=== PATIENT | female | born 1945 | race Caucasian/White ===

== ENCOUNTER 2016-09-01 19:40 | Emergency (ER) | payer MEDICARE, OTHER ==
[~2016-09-01] VITALS: Ht 157.5 cm; Wt 77.3 kg
[2016-09-01 19:54] VITALS: BP 185/92; PULSE 74; RESP 17; O2SAT 98
--- NOTE | 2016-09-01 21:30 | ED.REPORT ---
HPI-Trauma Minor / Fall Date of Service Sep 01, 2016 ED Provider: Marla Lebron MD 71 y/o female with no reported hx presents to the ED complaining of multiple minor abrasion after a ground level fell this evening. The patient tripped, witnessed by her family. She landed on both her hands and knees. She has an associated Left eye abrasion and a laceration to her left small finger. Pt reports seeing "pixilated images" right after the fall but otherwise denies any visual changes or loss. She denies LOC, neck pain, back pain, headache, numbness ,weakness, tingling in extremities, or difficulty walking. Pt is not taking any blood thinners. Patient was able to ambulate after the fall. Nursing Notes Stated Complaint: FALL,HEAD LACERATION Chief Complaint: Multiple Trauma/Fall Nursing Notes Reviewed: Yes Allergies: Coded Allergies: Sulfa (Sulfonamide Antibiotics) (Verified Allergy, Severe, Anaphylaxis, ) Penicillins (Verified Allergy, Intermediate, Diarrhea, 09/01/16) General Time Seen by MD: 21:29 Chief Complaint Fall Hx Obtained From: Patient Onset Occurred: Just prior to arrival Symptom Duration: Since onset Quality: Painful Severity: Current: Moderate Severity: Maximum: Moderate Context: Immunizations Tetanus not up to date Recent Healthcare: No recent doctor visit Similar Sx Previous: No Past Medical History Past Medical History none reported Past Surgical History multiple Smoking History Former Smoker Social History Alcohol Use: "Social" Drug Use: Denies drug use Other Social History: Good social support, , Local resident Ambulatory Status Independent Review of Systems Musculoskeletal: Denies: Back pain, Extremity pain, Neck pain Neurologic: Reports: Vision change (pixelated), Denies: Change LOC, Headache, Numbness, Problem walking, Weakness Complete sys rev & neg: except as marked. Physical Exam Initial Vital Signs Vital Signs (First) Date Time Temp Pulse Resp B/P Pulse Ox O2 Delivery O2 Flow Rate FiO2 09/01/16 19:54 36.3 74 17 185/92 98 Initial VS: Reviewed Head / Eyes: Atraumatic, Normocephalic, PERRL ENT: Mucous membranes moist, Conjunctiva normal, No scleral icterus Respiratory: Breath sounds normal, Clear to auscultation, No respiratory distress Cardiovascular: Regular rate & rhythm, Heart sounds normal, Intact distal pulses Abdomen / GI: Soft, Non-tender Neurologic: Alert, Oriented, Nonfocal Psychiatric: Mood/affect normal, Behavior normal, Normal thought content General/Constitutional: Awake, Alert, Cooperative, Not toxic appearing Neck: Atraumatic, Non-tender, No midline vertebral tend Head / Eyes: Normocephalic, PERRL, EOMI hematoma/abrasiona above the left eye Upper Extremity / MS: No deformity, Neurologic intact, Vascular intact Wrist / Hand: No deformity, Neurologic intact, Vascular intact, Tendon function NL Half centimeter laceration on base of left small finger. Lower Extremity / Pelvis / MS: No deformity, Neurologic intact, Vascular intact Bilateral abrasion on knees. Patellar swelling. Interpretation & Diagnostics X-Ray Interpretation Xray Interpretation: IMPRESSION: 1. No fracture or subluxation. Dictated by: Nura Morrison M.D. on 09/01/2016 at 21:58 Approved by: Nura Morrison M.D. on 09/01/2016 at 21:58 X-Ray Ordered: Knee left Interpretation / Wet Read by: Interpret - Radiologist CT Head Interpretation IMPRESSION: 1. No acute intracranial abnormality. 2. Left periorbital soft tissue swelling without evidence of fracture. Dictated by: Nura Morrison M.D. on 09/01/2016 at 21:56 Approved by: Nura Morrison M.D. on 09/01/2016 at 21:58 Study: Head CT no contrast Interpretation / Wet Read by: Interpret - Radiologist Procedures Laceration Management Time: 23:00 Procedure Performed by: ED physician Consent / Setup / Site Prep: Consent from patient, Time-out performed, Hand hygiene observed, Stand sterile technique Location of Wound: left small finger Wound Length: 1 cm (.5cm) Local Anesthesia: Bupivacaine 0.5%, 1cc Digit Involved: Little finger right Wound Preparation: Other (water) Debridement: None Irrigation: Copious Foreign Body Explore / Removal: Explored for foreign body Repair Skin: Nylon # Sutures - Skin: 5 Closure Layers: 1 Post-Procedure / Complications: Antibiotic oint applied, Dressing applied, No complications, Condition improved, Tolerated procedure well, Patient stable Re-Eval/Medical Decision Med Decision/Clinical Course The patient had a witnessed mechanical fall. Given her age a CT was obtained. She has multiple abrasions and was complaining mostly of left knee pain. X- rays are negative for fractures CT of her head was negative. She had her laceration repaired. Re-Evaluation/Progress : Time of Eval: 22:59 Re-Evaluation/Progress Note: Laceration sutured. Discussed imaging results and diagnosis. Informed the pt of the plan to discharge. Pt understands and agrees with plan. F/U instructions and RTER warning given. All questions addressed. Counseled Regarding: Diagnosis, Lab results, Need for follow-up, When/why to return to ED Discharge & Departure Impression: Primary Impression: Facial contusion Encounter type: initial encounter Qualified Code: S00.83XA - Contusion of other part of head, initial encounter Additional Impressions: Laceration of finger of left hand Encounter type: initial encounter Qualified Code: S61.219A - Laceration without foreign body of unspecified finger without damage to nail, initial encounter Knee contusion Encounter type: initial encounter Laterality: unspecified laterality Qualified Code: S80.00XA - Contusion of unspecified knee, initial encounter Disposition: Home Discharge Condition All VS Reviewed: Yes Condition: Stable Patient Instructions: Laceration (ED) Additional Instructions: Keep your wounds clean and covered. Return to the emergency department in 12-14 days for suture removal. Return to the emergency department in case of worsened pain, swelling, redness, puss-like discharge or any new or worsening symptoms. Referrals: OTHER,PHYSICIAN (PCP) Scribe Attestation Portions of this note were transcribed by Cindy Jesus I, personally performed the history, physical exam and medical decision-making;I reviewed and confirmed the accuracy of the information in the transcribed note. Signed by Cindy Duran and Mary Ellen Jesus, Scribe. 09/02/16 0255 Marla Lebron MD Sep 01, 2016 21:30 Cindy Duran Sep 01, 2016 21:39 Mary Ellen Jesus Sep 02, 2016 02:25
[2016-09-01] MEDS ORDERED: TdaP Vaccine 0.5 mL Inj IM ONE (21:40)
--- NOTE | 2016-09-01 21:59 | DRSVH ---
PROCEDURE: CT BRAIN WITHOUT CONTRAST ([id number]) INDICATIONS: fall TECHNIQUE: Noncontrast 4.5 mm thick angled axial sections acquired from the foramen magnum to the vertex, with c oronal reformats. COMPARISON: None. FINDINGS: Image quality: Excellent. CSF spaces: Basal cisterns are patent. No extra-axial fluid collections. Ventricles are normal in size and shape. Brain: No intracranial hemorrhage, mass, or mass effect. Bridges-white matter interface is preserved. Skull and face: There is left periorbital soft tissue swelling. Calvarium and visualized facial bon es appear intact, without suspicious lesions. Sinuses: Visualized sinuses and mastoids are clear. IMPRESSION: 1. No acute intracranial abnormality. 2. Left periorbital soft tissue swelling without evidence of fracture. Dictated by: Nura Morrison M.D. on 09/01/2016 at 21:56 Approved by: Nura Morrison M.D. on 09/01/2016 at 21:58
--- NOTE | 2016-09-01 22:00 | DRSVH ---
PROCEDURE: X-RAY LEFT KNEE, THREE VIEWS ([id number]) INDICATIONS: fall TECHNIQUE: 3 views of the knee were acquired. COMPARISON: None. FINDINGS: Bones: No fractures or dislocations. No suspicious bony lesions. Soft tissues: No joint effusion. No suspicious soft tissue calcifications. IMPRESSION: 1. No fracture or subluxation. Dictated by: Nura Morrison M.D. on 09/01/2016 at 21:58 Approved by: Nura Morrison M.D. on 09/01/2016 at 21:58
== END 2016-09-01 23:36 | disposition home or self-care (01) ==
LOC: SED 19:40
DX: S00.83XA Contusion of other part of head, initial encounter (principal); S61.217A Laceration without foreign body of left little finger without damage to nail, initial encounter; S80.00XA Contusion of unspecified knee, initial encounter; W01.0XXA Fall on same level from slipping, tripping and stumbling without subsequent striking against object, initial encounter; Y93.89 Activity, other specified; Y92.9 Unspecified place or not applicable; Y99.9 Unspecified external cause status; Z87.891 Personal history of nicotine dependence; Z88.0 Allergy status to penicillin; Z88.2 Allergy status to sulfonamides; Z23 Encounter for immunization